=== PATIENT | male | born 1980 | race Two or more races ===

== ENCOUNTER 2018-09-13 22:01 | Emergency (ER) | payer OTHER ==
[~2018-09-13] VITALS: Ht 177.8 cm; Wt 76.0 kg
[2018-09-13] MEDS ORDERED: MORPHINE SULFATE 4 MG/ML CPJ (NOT FOR IM USE) IV ONE (22:45)
[2018-09-13] MEDS ORDERED: ONDANSETRON HCL 4MG/2ML INJ IV ONE (22:45)
[2018-09-14] MEDS ORDERED: KETOROLAC 30MG/ML VIAL IV ONE (00:15)
[2018-09-14 02:03] VITALS: BP 125/77
== END 2018-09-14 02:31 | disposition home or self-care (01) ==
LOC: ER 22:23
DX: S82.391A Other fracture of lower end of right tibia, initial encounter for closed fracture (principal); S82.831A Other fracture of upper and lower end of right fibula, initial encounter for closed fracture; V00.141A Fall from scooter (nonmotorized), initial encounter; Y93.89 Activity, other specified; Y92.89 Other specified places as the place of occurrence of the external cause
CPT/HCPCS: 27752; 73610; 73630; 96374; 99283; J1885; Z7610